=== PATIENT | female | born 1970 | race Caucasian/White ===

== ENCOUNTER 2019-03-18 14:56 | Day surgery (SDC) | payer SELFPAY ==
[2019-03-10 16:45] VITALS: BMI 25.8
[~2019-03-18 14:56] MED LIST: ACETAMINOPHEN 325 MG TABLET (FP) PO PRN; ACETAMINOPHEN INJECTION 100 ML IVPB ONE; BENZOIN TINCTURE SWABSTICK TP ONE; BENZOIN/ALOE VERA/STORAX/TOLU 58 ML BOTTLE ONE; BUPIVACAINE HCL/PF 2.5 MG/ML - 30 ML VIAL IJ ONE; DEXAMETHASONE SOD PHOSPHATE 4 MG/1 ML VIAL ONE; GENTAMICIN SO4 80 MG/2 ML VIAL ONE; GUM MASTIC/STORAX/MSAL/ALCOHOL 1 DRP DROPSBTL MC ONE; KETOROLAC TROMETHAMINE 30 MG/1 ML VIAL ONE; LACTATED RINGERS SOLUTION 1,000 ML IV SCH; LIDOCAINE 1%/EPI 1:100000 (20 ML MULTI DOSE VIAL) ONE; LIDOCAINE 1%/EPI 1:100000 (50 ML MULTI DOSE VIAL) INF ONE; LIDOCAINE HCL/PF 2% SDV 5ML VIAL ONE; MIDAZOLAM HCL 2 MG/2 ML SINGLE DOSE VIAL ONE; ONDANSETRON 4 MG/2 ML VIAL IVPUSH PRN; ONDANSETRON 4 MG/2 ML VIAL ONE; PHENYLEPHRINE HCL 10 MG/1 ML SINGLE DOSE VIAL ONE; PROPOFOL 20 ML ONE; ROCURONIUM BROMIDE 50 MG/5 ML VIAL ONE; ZOLPIDEM TARTRATE 5 MG TABLET PO PRN; ceFAZolin SODIUM 1 GM VIAL ONE; ePHEDrine SULFATE 50 MG/1 ML AMPULE ONE; fentaNYL CITRATE 250 MCG/5 ML VIAL ONE
[2019-03-18] MEDS ORDERED: traMADol HCL 50 MG TABLET PO PRN (14:59)
[2019-03-18] MEDS ORDERED: LACTATED RINGERS SOLUTION 1,000 ML IV SCH (15:00)
[2019-03-18] MEDS: CEFAZOLIN 1 GM/D5W 1 GM/50 ML BAG IVPB SCH ×2 (18:44→20:54)
[2019-03-18] MEDS: DOXYCYCLINE HYCLATE 100 MG CAPSULE PO SCH (18:47)
[2019-03-19] MEDS: CEFAZOLIN 1 GM/D5W 1 GM/50 ML BAG IVPB SCH ×2 (02:28→09:36)
[2019-03-19] MEDS: oxyCODONE HCL 5 MG TABLET PO PRN ×2 (05:58→11:14)
[2019-03-19 09:28] VITALS: BP 104/65; PULSE 82; TEMP 98
[2019-03-19] MEDS: DOXYCYCLINE HYCLATE 100 MG CAPSULE PO SCH (09:36)
--- NOTE | 2019-03-23 16:13 | PATH ---
Surgical Pathology Report Patient Name: REYES MUNOZ Med. Rec. #: [id number] /Age/Gender: 1970 (Age: 49) / F Account: <[id number]> Location: [facility] MED-SURG Taken: 03/18/2019 Received: 03/18/2019 Reported: 03/23/2019 Physicians: Priscila Kim M.D. Specimen(s) Received A: RIGHT BREAST SKIN B: LEFT BREAST SKIN C: LEFT NECK LESION Clinical History Cosmetic Neck lesion of unknown behavior Final Diagnosis A. SKIN, RIGHT BREAST, EXCISION/MASTOPEXY: SKIN, DESCRIBED (GROSS EXAMINATION ONLY). B. SKIN, LEFT BREAST, EXCISION/MASTOPEXY: SKIN, DESCRIBED (GROSS EXAMINATION ONLY). C. NECK, LEFT, LESION, EXCISION: INTRADERMAL NEVUS. Electronically Signed Hallie Llanos M.D. Gross Description A. Received in formalin labeled "right breast skin," is a 6.0 x 1.5 x 0.2 cm aggregate of multiple irregular, unoriented skin shaves. The epidermal surfaces are unremarkable. No sections are submitted, gross only. B. Received in formalin labeled "left breast skin," is a 5.8 x 1.4 x 0.2 cm aggregate of multiple irregular, unoriented skin shaves. The epidermal surfaces are unremarkable. No sections are submitted, gross only. C. Received in formalin labeled "left neck lesion" is a 0.6 x 0.5 cm tejada, unoriented skin shave. The epidermal surface displays a 0.4 x 0.3 cm tejada nodular lesion. The base is inked green and the specimen is bisected. The specimen is entirely submitted in one cassette. /03/22/2019 saudi03/22/2019
== END 2019-03-19 13:15 | disposition home or self-care (01) ==
LOC: FASUSAT 14:56 → FM/S 14:56 → FASUSAT 03-19 13:15
PROVIDERS: ATTEND Surgery
PROC: 0H0V0JZ Alteration of Bilateral Breast with Synthetic Substitute, Open Approach (ICD-10-PCS; principal; 2019-03-18 09:30)
PROC: 0HB4XZX Excision of Neck Skin, External Approach, Diagnostic (ICD-10-PCS; 2019-03-18 09:30)
DX: Z41.1 Encounter for cosmetic surgery (principal); D36.7 Benign neoplasm of other specified sites
CPT/HCPCS: 84703; 88300-TC; 88305-TC; 94760; J0131